=== PATIENT | male | born 1960 | race Caucasian/White ===

== ENCOUNTER → 2017-06-29 | Outpatient (CLI) | payer OTHER ==
[2015-03-19 13:02] VITALS: BMI 48.4
[~2017-06-29] MED LIST: ACET500T68 PO; ALL300 PO; ASPI-757 PO; ATOR20TA22 PO; DIA5 PO; DIPH-740 PO; DOC100 PO; FLUT16SP19 NS; GLUC-198 PO; HYDR-318 PO; IBUP-56 PO; KETC15T TP; LACT1CAP9 PO; LEVO200T44 PO; LOSA100T67 PO; LOSA50TA73 PO; MULT-1335 PO; MV-M1TAB37 PO; NEBI10TA4 PO; OLM20 PO; OMEP-153 PO; OMEP40CA79 PO; PER PO; PRED5DRO34 OP; SIMV-42 PO; TADA5TAB7 PO; TRIA15CR40 TP
--- NOTE | 2017-06-29 15:49 | EKG ---
FACILITY: [facility] - [place] PATIENT NAME: KEITH TRAN : [id number] MR: [id number] V: [id number] EXAM DATE: ORDERING PHYSICIAN: LACEY ANDREA TECHNOLOGIST: JAZMYNE Shah Reason : PRE-OP Blood Pressure : / mmHG Vent. Rate : 070 BPM Atrial Rate : 070 BPM P-R Int : 170 ms QRS Dur : 114 ms QT Int : 366 ms P-R-T Axes : 030 093 069 degrees QTc Int : 395 ms Sinus rhythm Rightward axis Nonspecific ST findings inferior leads Similar to previous EKGs Confirmed by VINICIUS GUERRA ([id number]) on 06/30/2017 6:28:19 AM Referred By: ZULLY Confirmed By:VINICIUS GUERRA
== END ==
LOC: RESP 15:11
PROVIDERS: ATTEND Anesthesiology
DX: Z01.812 Encounter for preprocedural laboratory examination (principal); Z01.810 Encounter for preprocedural cardiovascular examination; M75.121 Complete rotator cuff tear or rupture of right shoulder, not specified as traumatic; S46.811A Strain of other muscles, fascia and tendons at shoulder and upper arm level, right arm, initial encounter; E07.9 Disorder of thyroid, unspecified; X58.XXXA Exposure to other specified factors, initial encounter
CPT/HCPCS: 93005

== ENCOUNTER → 2018-02-02 | Outpatient (REF) | payer OTHER ==
[2015-03-19 13:02] VITALS: BMI 48.4
== END ==
LOC: ZZSENDIN 12:00
PROVIDERS: ATTEND Family Medicine
DX: L82.1 Other seborrheic keratosis (principal)
CPT/HCPCS: 88305

== ENCOUNTER → 2018-05-12 | Outpatient (CLI) | payer OTHER ==
[2015-03-19 13:02] VITALS: BMI 48.4
[~2018-05-12] MED LIST changes: -LOSA100T67 PO; +LOSA100T69 PO
--- NOTE | 2018-05-12 14:32 | EKG ---
FACILITY: [facility] - [place] PATIENT NAME: KEITH TRAN : [id number] MR: [id number]: [id number] EXAM DATE: ORDERING PHYSICIAN: LACEY ANDREA TECHNOLOGIST: ALLA Test Reason : PREOP-L SHOULDER Blood Pressure : / mmHG Vent. Rate : 072 BPM Atrial Rate : 072 BPM P-R Int : 182 ms QRS Dur : 112 ms QT Int : 378 ms P-R-T Axes : 075 094 066 degrees QTc Int : 413 ms Normal sinus rhythm Normal ECG When compared with ECG of 29-JUN-2017 15:15, Previous ECG has undetermined rhythm, needs review Confirmed by LACEY HERNANDEZ ([id number]) on 05/12/2018 6:35:59 PM Referred By: ZULLY Confirmed By:LACEY HERNANDEZ
== END ==
LOC: RESP 14:17
PROVIDERS: ATTEND Anesthesiology
DX: Z01.810 Encounter for preprocedural cardiovascular examination (principal); M75.112 Incomplete rotator cuff tear or rupture of left shoulder, not specified as traumatic
CPT/HCPCS: 93005